=== PATIENT | male | born 1965 | race Two or more races ===

== ENCOUNTER 2018-08-13 14:44 | Inpatient (IN) | payer OTHER ==
[2018-08-13 16:35] VITALS: BMI 24.4
--- NOTE | 2018-08-13 19:00 | HP ---
CIWA Score Nausea/Vomitin-No Nausea/No Vomiting Muscle Tremors: 3 Anxiety: 3 Agitation: 3 Paroxysmal Sweats: 3 Orientation: 0-Oriented Tacttile Disturbances: 0-None Auditory Disturbances: 0-None Visual Disturbances: 0-None Headache: 2-Mild CIWA-Ar Total Score: 14 - Admission Criteria OASAS Guidelines: Admission for Medically Managed Detox: Requires at least one of the followin. CIWA greater than 12 2. Seizures within the past 24 hours 3. Delirium tremens within the past 24 hours 4. Hallucinations within the past 24 hours 5. Acute intervention needed for co occurring medical disorder 6. Acute intervention needed for co occurring psychiatric disorder 7. Severe withdrawal that cannot be handled at a lower level of care (continued vomiting, continued diarrhea, abnormal vital signs) requiring intravenous medication and/or fluids 8. Patient presents the following: CIWA greater than 12 Admission Criteria Met: Admission criteria met Admission ROS [facility] Chief Complaint: Alcohol withdrawal. Allergies/Adverse Reactions: Allergies Allergy/AdvReac Type Severity Reaction Status Date / Time No Known Allergies Allergy Verified 08/13/18 16:31 History of Present Illness: Here for alcohol detox. States "I'm drinking too much". Alcohol use since age 8. States current past few years. Longest length of sobriety from ETOH is 6 months. Cocaine use since age 17. Smokes. States current use x years. Heroin use began at age 17. Been on [facility]- MMTP x 6 years. Methadone dose is 135 mg. Had methadone today. No opiate relapse. Has a Narcan Kit at home Nicotine use since age 8. States down to 6 cig/day. Denies seizures. Blackout years ago. Overdose years ago. PMHx: HTN (stopped meds);heart attack after overdosing (years ago). States lesion on tongue is cancer and will be f/u w/ PCP after discharge. MHHx: Insomnia, Anxiety, depression. On meds - states compliant. Denies thoughts of harming self or others. Last saw a MH Provider 3 months ago. Search Terms: Eder Vann, 1965 Search Date: 08/13/2018 07:01:00 PM The Drug Utilization Report below displays all of the controlled substance prescriptions, if any, that your patient has filled in the last twelve months. The information displayed on this report is compiled from pharmacy submissions to the Department, and accurately reflects the information as submitted by the pharmacies. This report was requested by: Ayde Castellanos | Reference #: [id number] There are no results for the search terms that you entered. Search Terms: Eder Vann, 1965 Search Date: 08/13/2018 07:01:43 PM States Searched: [place], [place], [place], [place], [place], [place], [place] The Drug Utilization Report below displays the controlled substance prescriptions, if any, that were dispensed in the indicated state(s). The information displayed on this report is compiled from requests submitted to other states' PMPs, and accurately reflects the information as returned by them. Blank singer indicate data not provided by other state. This report was requested by: Ayde Castellanos | Reference #: [id number] Exam Limitations: No Limitations - Ebola screening Have you traveled outside of the country in the last 21 days: No (N) Have you had contact with anyone from an Ebola affected area: No Have you been sick,other than usual withdrawal symptoms: No (Denies recent measles exposure) Do you have a fever: No - Review of Systems Constitutional: Chills, Diaphoresis, Changes in sleep (Difficulty falling asleep ) EENT: reports: Blurred Vision, Dental Problems (No teeth. Can chew soft food.) Respiratory: reports: No Symptoms reported Cardiac: reports: No Symptoms Reported GI: reports: No Symptoms Reported : reports: No Symptoms Reported Musculoskeletal: reports: Back Pain (Intermittent back pain. Increases when standing up too long.), Other (Partial amputation (R) hand ring finger) Integumentary: reports: Other (Old track layne) Neuro: reports: Headache (Mild headache sides of head) Endocrine: reports: No Symptoms Reported Hematology: reports: No Symptoms Reported Psychiatric: reports: Judgement Intact, Orientated x3, Agitated, Anxious, Depressed (Denies thoughts of harming self or others) Patient History - Smoking Cessation Smoking history: Current every day smoker Have you smoked in the past 12 months: Yes Aproximately how many cigarettes per day: 6 Hx Chewing Tobacco Use: No Initiated information on smoking cessation: Yes 'Breaking Loose' booklet given: 08/13/18 - Substances abused Alcohol Substance route: Oral Frequency: Daily Amount used: BEERS- 5 24OZ CANS Age of first use: 8 Date of last use: 08/13/18 Cocaine Substance route: Smoking Frequency: Daily Amount used: $50 Age of first use: 17 Date of last use: 08/13/18 Admission Physical Exam [facility] - Vital Signs Vital Signs: Vital Signs - 24 hr 08/13/18 16:31 Temperature 97 F L Pulse Rate 80 Respiratory 18 Rate Blood Pressure 118/70 - Physical General Appearance: Yes: Nourished, Mild Distress, Sweating (Increased facial moisture) HEENTM: Yes: Lessions (Mass (R) lateral tongue approc 4 x 2 cm/ with whitish- yellow irregular surface/non-tender. No open ulceration noted.) Respiratory: Yes: Lungs Clear, Normal Breath Sounds, No Respiratory Distress Neck: Yes: Supple, Thyroid enlarged ((R) lateral area) Breast: Yes: Breast Exam Deferred Cardiology: Yes: Regular Rhythm, S1, S2 Abdominal: Yes: Non Tender, Flat, Soft, Increased Bowel Sounds Genitourinary: Yes: Within Normal Limits Back: Yes: Normal Inspection Musculoskeletal: Yes: full range of Motion, Gait Steady, Other (Old partial amputation (R) 4th (ring) finger) Extremities: Yes: Normal Capillary Refill, Tremors (Mild tremors) Neurological: Yes: millwright II-XII NML intact, Fully Oriented, Alert, Motor Strength 5/5 Integumentary: Yes: Normal Color, Warm, Track Layne (Old track layne arms and legs) Lymphatic: Yes: Within Normal Limits - Diagnostic (1) Alcohol dependence with uncomplicated withdrawal Current Visit: Yes Status: Acute (2) Cocaine dependence, uncomplicated Current Visit: Yes Status: Chronic (3) Methadone maintenance therapy patient Current Visit: Yes Status: Chronic (4) Thyroid enlarged Current Visit: Yes Status: Chronic (5) Tongue lesion Current Visit: Yes Status: Chronic Comment: Patient states has cancer. (6) Nicotine dependence, uncomplicated Current Visit: Yes Status: Chronic Qualifiers: Nicotine product type: cigarettes Qualified Code(s): F17.210 - Nicotine dependence, cigarettes, uncomplicated Cleared for Admission [facility] - Detox or Rehab [facility] Level of Care: Medically Managed Detox Regimen/Protocol: Librium Claeared for Rehab Admission: No Breathalyzer - Breathalyzer Breathalyzer: 0.006 Urine Drug Screen - Test Device Lot number: [id number] Expiration date: 04/25/20 - Control Is test valid?: Yes - Results Drug screen NEGATIVE: No Urine drug screen results: YVROSE-Cocaine, MTD-Methadone Inpatient Rehab Admission - Rehab Decision to Admit Inpatient rehab admission?: No
[2018-08-13] MEDS ORDERED: chlordiazePOXIDE HCL 10 MG CAPSULE PO PRN (20:01)
[2018-08-13] MEDS ORDERED: PROCHLORPERAZINE MALEATE 5 MG TABLET PO PRN (20:01)
[2018-08-13] MEDS ORDERED: IBUPROFEN 400 MG TABLET (FP) PO PRN (20:01)
[2018-08-13] MEDS ORDERED: MAGNESIUM CITRATE 300 ML BOTTLE PO PRN (20:01)
[2018-08-13] MEDS ORDERED: METHOCARBAMOL 500 MG TABLET PO PRN (20:01)
[2018-08-13] MEDS ORDERED: ACETAMINOPHEN 325 MG TABLET (FP) PO PRN ×2 (20:01)
[2018-08-13] MEDS ORDERED: MENTHOL/PHENOL 1 EACH UD MM PRN (20:01)
[2018-08-13] MEDS ORDERED: MAGNESIUM HYDROX 2400MG/30ML ORAL SUSPENSION 30 ML CUP PO PRN (20:01)
[2018-08-13] MEDS ORDERED: BISMUTH SUBSALICYLATE 524 MG/30 ML UD PO PRN (20:01)
[2018-08-13] MEDS ORDERED: NICOTINE POLACRILEX 2 MG GUM BUC PRN (20:01)
[2018-08-13] MEDS ORDERED: hydrOXYzine PAMOATE 25 MG CAPSULE (FP) PO PRN (20:01)
[2018-08-13] MEDS ORDERED: MAG HYDROX/AL HYDROX/SIMETH 30 ML UNIT-DOSE CUP PO PRN (20:01)
[2018-08-13] MEDS: THIAMINE HCL 100 MG TABLET (FP) PO SCH (21:52)
[2018-08-13] MEDS: chlordiazePOXIDE HCL 25 MG CAPSULE PO SCH (21:52)
[2018-08-13] MEDS: MELATONIN 5 MG TABLETS PO PRN (21:52)
[2018-08-14] MEDS: chlordiazePOXIDE HCL 25 MG CAPSULE PO SCH ×2 (05:19→12:25)
[2018-08-14] MEDS: PRENATAL VITAMINS W/ FOLIC ACID TABLET (FP) PO SCH (09:48)
[2018-08-14 10:26] LABS: HEMATOCRIT 36.8 % (35.4-49); HEMOGLOBIN 11.7 GM/dL (11.7-16.9); MCH 26.7 pg (25.7-33.7); MCHC 31.8 g/dl (32.0-35.9); MEAN PLT VOLUME 7.7 fl (7.5-11.1); PLATELET COUNT 250 K/MM3 (134-434); RBC 4.38 M/mm3 (4.00-5.60); RDW 13.3 % (11.9-15.9); WHITE BLOOD COUNT 5.3 K/mm3 (4.0-10.0)
--- NOTE | 2018-08-14 10:39 | HP ---
[facility] Rehab Assess/Revision - Admission History Admitted to Rehab from: Medical/Surgical - Vital signs Vital Signs: Vital Signs Period Temp Pulse Resp BP Sys/Cummings Pulse Ox Last 24 Hr 97 F-98.2 F 54-80 18-18 108-133/64-86
--- NOTE | 2018-08-14 10:41 | PN ---
S CIWA - CIWA Score Nausea/Vomitin-Mild Nausea/No Vomiting Muscle Tremors: 3 Anxiety: 2 Agitation: 3 Paroxysmal Sweats: 1-Minimal Palms Moist Orientation: 0-Oriented Tacttile Disturbances: 0-None Auditory Disturbances: 0-None Visual Disturbances: 0-None Headache: 1-Very Mild CIWA-Ar Total Score: 11 S Progress Note (SOAP) Subjective: tolerate food and fluid well resting on bed most of the morning Objective: 08/14/18 10:40 Vital Signs Temperature 98.2 F 08/14/18 09:02 Pulse Rate 54 L 08/14/18 09:02 Respiratory Rate 18 08/14/18 09:02 Blood Pressure 109/64 08/14/18 09:02 O2 Sat by Pulse Oximetry (%) Laboratory Last Values WBC 5.3 K/mm3 (4.0-10.0) 08/14/18 07:00 RBC 4.38 M/mm3 (4.00-5.60) 08/14/18 07:00 Hgb 11.7 GM/dL (11.7-16.9) 08/14/18 07:00 Hct 36.8 % (35.4-49) 08/14/18 07:00 MCV 84.0 fl (80-96) 08/14/18 07:00 MCH 26.7 pg (25.7-33.7) 08/14/18 07:00 MCHC 31.8 g/dl (32.0-35.9) L 08/14/18 07:00 RDW 13.3 % (11.9-15.9) 08/14/18 07:00 Plt Count 250 K/MM3 (134-434) 08/14/18 07:00 MPV 7.7 fl (7.5-11.1) 08/14/18 07:00 lab noted Assessment: 08/14/18 10:40 withdrawal sx Plan: continue detox
[2018-08-14 10:42] LABS: ALBUMIN 3.6 g/dl (3.4-5.0); BILIRUBIN,TOTAL 0.4 mg/dL (0.2-1); POTASSIUM 4.3 mmol/L (3.5-5.1); TOT PROT 7.4 g/dl (6.4-8.2)
[2018-08-14] MEDS ORDERED: METHADONE HCL 10 MG TABLET PO ONE (12:03)
[2018-08-14] MEDS ORDERED: METHADONE 120 MG, METHADONE 10 MG, METHADONE 5 MG PO ONE (12:15)
[2018-08-14] MEDS ORDERED: METHADONE HCL 10 MG TABLET ONE (12:15)
[2018-08-14] MEDS ORDERED: METHADONE HCL 40 MG DISPERSABLE TABLET ONE (12:16)
[2018-08-14] MEDS ORDERED: METHADONE HCL 5 MG TABLET ONE (12:17)
--- NOTE | 2018-08-14 17:15 | CONSULT ---
[facility] Psychiatric Consult - Data Date of interview: 08/14/18 Admission source: [facility] Identifying data: First admission to [facility] for this 53 y/o Aa male self- referred for detoxification (cocaine, heroin, alcohol). Examined at [address] [place] [address]. Patient is , no children, homeless, unemployed and supported of SSI benefits. Substance Abuse History: Confirmed by the patient in this session. Details in current [facility] report as follows : Smoking history: Current every day smoker. Have you smoked in the past 12 months: Yes. Aproximately how many cigarettes per day: 6. Hx Chewing Tobacco Use: No. Initiated information on smoking cessation: Yes. 'Breaking Loose' booklet given: 08/13/18. - Substances abused. Alcohol. Substance route: Oral. Frequency: Daily. Amount used: BEERS- 5 24OZ CANS. Age of first use: 8. Date of last use: 08/13/18. Cocaine. Substance route: Smoking. Frequency: Daily. Amount used: $50. Age of first use: 17. Date of last use: 08/13/18 Medical History: Hepatitis C, antecedent of heart attack (tears ago), lesion of the tongue and hypertension. Psychiatric History: No reported history of psychiatric hospitalizations. Patient informs that he sees a psychiatrist, every three months, in [facility]. Diagnosed with MDD and prescribed remeron 15 mg/hs + abilify 10 mg/day. Mr Vann is also on methadone maintenance (135 mg/day) at the [facility] ([facility]) in [facility]. Denies history of suicide attempts. Physical/Sexual Abuse/Trauma History: Patient denies. Additional Comment: Urine drug screen results: YVROSE-Cocaine, MTD-Methadone. Noted. Mental Status Exam - Mental Status Exam Alert and Oriented to: Time, Place, Person Cognitive Function: Good Patient Appearance: Well Groomed (edentulous) Mood: Hopeful Affect: Appropriate, Normal Range Patient Behavior: Fatigued, Appropriate, Cooperative Speech Pattern: Clear Voice Loudness: Normal Thought Process: Intact, Goal Oriented Thought Disorder: Not Present Hallucinations: Denies Suicidal Ideation: Denies Homicidal Ideation: Denies Insight/Judgement: Fair Sleep: Poorly, Difficulty falling asleep Appetite: Good Muscle strength/Tone: Normal Gait/Station: Normal Psychiatric Findings - Problem List ([place] 1, 2,3) (1) Alcohol dependence with uncomplicated withdrawal Current Visit: Yes Status: Acute (2) Opioid dependence on agonist therapy Current Visit: Yes Status: Acute (3) Cocaine dependence, uncomplicated Current Visit: Yes Status: Chronic (4) Nicotine dependence, uncomplicated Current Visit: Yes Status: Chronic Qualifiers: Nicotine product type: cigarettes Qualified Code(s): F17.210 - Nicotine dependence, cigarettes, uncomplicated (5) Substance induced mood disorder Current Visit: Yes Status: Chronic (6) History of mood disorder Current Visit: Yes Status: Chronic (7) Insomnia Current Visit: Yes Status: Chronic - Initial Treatment Plan Initial Treatment Plan: Psychoeducation. Sleep hygiene. Detoxification. Medications : abilify 10 mg po daily + remeron 15 mg po hs. Side effects/ benefits of both medications are discussed with patient. Consent (verbal) given to MD. Mireles.
[2018-08-14] MEDS: chlordiazePOXIDE 5 MG CAPSULE PO SCH (22:09)
[2018-08-14] MEDS: MELATONIN 5 MG TABLETS PO PRN (22:09)
[2018-08-14] MEDS: MIRTAZAPINE 15 MG TABLET (FP) PO SCH (22:09)
[2018-08-14] MEDS: THIAMINE HCL 100 MG TABLET (FP) PO SCH (22:09)
[2018-08-15] MEDS ORDERED: METHADONE HCL 10 MG TABLET ONE (04:45)
[2018-08-15] MEDS ORDERED: METHADONE HCL 5 MG TABLET ONE (04:46)
[2018-08-15] MEDS ORDERED: METHADONE HCL 40 MG DISPERSABLE TABLET ONE (04:46)
[2018-08-15] MEDS: chlordiazePOXIDE 5 MG CAPSULE PO SCH ×2 (05:11→13:41)
[2018-08-15] MEDS: METHADONE 120 MG, METHADONE 10 MG, METHADONE 5 MG PO SCH (05:11)
[2018-08-15] MEDS ORDERED: METHADONE HCL 10 MG TABLET PO SCH (06:00)
[2018-08-15] MEDS: ARIPiprazole 10 MG TABLET PO SCH (10:04)
[2018-08-15] MEDS: PRENATAL VITAMINS W/ FOLIC ACID TABLET (FP) PO SCH (10:04)
--- NOTE | 2018-08-15 12:02 | PN ---
[facility] CIWA - CIWA Score Nausea/Vomitin-Mild Nausea/No Vomiting Muscle Tremors: 2 Anxiety: 2 Agitation: 2 Paroxysmal Sweats: 1-Minimal Palms Moist Orientation: 0-Oriented Tacttile Disturbances: 0-None Auditory Disturbances: 0-None Visual Disturbances: 0-None Headache: 0-None Present CIWA-Ar Total Score: 8 S Progress Note (SOAP) Subjective: feeling better today patient is on methadone program 135 mg po daily estimated discharge date 08/16/18 patient will return to his methadone program on Sunday Objective: 08/15/18 12:01 Vital Signs Temperature 98.2 F 08/15/18 09:25 Pulse Rate 55 L 08/15/18 09:25 Respiratory Rate 18 08/15/18 09:25 Blood Pressure 109/69 08/15/18 09:25 O2 Sat by Pulse Oximetry (%) Laboratory Last Values WBC 5.3 K/mm3 (4.0-10.0) 08/14/18 07:00 RBC 4.38 M/mm3 (4.00-5.60) 08/14/18 07:00 Hgb 11.7 GM/dL (11.7-16.9) 08/14/18 07:00 Hct 36.8 % (35.4-49) 08/14/18 07:00 MCV 84.0 fl (80-96) 08/14/18 07:00 MCH 26.7 pg (25.7-33.7) 08/14/18 07:00 MCHC 31.8 g/dl (32.0-35.9) L 08/14/18 07:00 RDW 13.3 % (11.9-15.9) 08/14/18 07:00 Plt Count 250 K/MM3 (134-434) 08/14/18 07:00 MPV 7.7 fl (7.5-11.1) 08/14/18 07:00 Sodium 138 mmol/L (136-145) 08/14/18 07:00 Potassium 4.3 mmol/L (3.5-5.1) 08/14/18 07:00 Chloride 107 mmol/L (98-107) 08/14/18 07:00 Carbon Dioxide 26 mmol/L (21-32) 08/14/18 07:00 Anion Gap 5 MMOL/L (8-16) L 08/14/18 07:00 BUN 17 mg/dL (7-18) 08/14/18 07:00 Creatinine 1.0 mg/dL (0.55-1.3) 08/14/18 07:00 Est GFR (CKD-EPI)AfAm 99.85 08/14/18 07:00 Est GFR (CKD-EPI)NonAf 86.15 08/14/18 07:00 Random Glucose 92 mg/dL (74-106) 08/14/18 07:00 Calcium 9.0 mg/dL (8.5-10.1) 08/14/18 07:00 Total Bilirubin 0.4 mg/dL (0.2-1) 08/14/18 07:00 AST 26 U/L (15-37) 08/14/18 07:00 ALT 22 U/L (13-61) 08/14/18 07:00 Alkaline Phosphatase 83 U/L (45-117) 08/14/18 07:00 Total Protein 7.4 g/dl (6.4-8.2) 08/14/18 07:00 Albumin 3.6 g/dl (3.4-5.0) 08/14/18 07:00 RPR Titer Nonreactive (NONREACTIVE) 08/14/18 07:00 lab noted Assessment: 08/15/18 12:02 alcohol withdrawal sx Plan: continue detox
[2018-08-15] MEDS ORDERED: chlordiazePOXIDE HCL 10 MG CAPSULE PO PRN (21:00)
[2018-08-15] MEDS: MELATONIN 5 MG TABLETS PO PRN (22:04)
[2018-08-15] MEDS: chlordiazePOXIDE HCL 10 MG CAPSULE PO SCH (22:04)
[2018-08-15] MEDS: MIRTAZAPINE 15 MG TABLET (FP) PO SCH (22:04)
[2018-08-15] MEDS: THIAMINE HCL 100 MG TABLET (FP) PO SCH (22:04)
[2018-08-16] MEDS ORDERED: METHADONE HCL 40 MG DISPERSABLE TABLET ONE (04:09)
[2018-08-16] MEDS ORDERED: METHADONE HCL 10 MG TABLET ONE (04:09)
[2018-08-16] MEDS ORDERED: METHADONE HCL 5 MG TABLET ONE (04:10)
[2018-08-16] MEDS: chlordiazePOXIDE HCL 10 MG CAPSULE PO SCH (05:31)
[2018-08-16] MEDS: METHADONE 120 MG, METHADONE 10 MG, METHADONE 5 MG PO SCH (05:31)
[2018-08-16 06:19] VITALS: TEMP 97.5
[2018-08-16 09:05] VITALS: BP 108/74; PULSE 58
[2018-08-16] MEDS: PRENATAL VITAMINS W/ FOLIC ACID TABLET (FP) PO SCH (10:16)
[2018-08-16] MEDS: ARIPiprazole 10 MG TABLET PO SCH (10:16)
--- NOTE | 2018-08-16 11:38 | DS ---
[facility] Detox Discharge Summary Admission Date: 08/13/18 Discharge Date: 08/16/18 - History Present History: Alcohol Dependence, Cocaine Dependence, Opioid Dependence, MMTP Additional Comments: PATIENT GOING TO [facility] ([place] [facility] FOR AFTERCARE. PATIENT WAS DISCHARGED FROM DETOX UNIT TO BE TAKEN OVER TO REHAB UNIT IN STABLE MEDICAL CONDITION. Pertinent Past History: M.M.T.P., Nicotine Dependence, Insomnia, HTN, GA, History of Lesion On Tongue, History of GA, History Of Enlarged Thyroid, Anxiety, Depression, History Of Mood Disorder. - Physical Exam Results Vital Signs: Vital Signs Temperature 97.5 F L 08/16/18 09:03 Pulse Rate 58 L 08/16/18 09:03 Respiratory Rate 18 08/16/18 09:03 Blood Pressure 108/74 08/16/18 09:03 O2 Sat by Pulse Oximetry (%) Pertinent Admission Physical Exam Findings: WITHDRAWAL SYMPTOMS. Laboratory Tests 08/14/18 08/14/18 08/14/18 07:00 07:00 07:00 WBC 5.3 RBC 4.38 Hgb 11.7 Hct 36.8 MCV 84.0 MCH 26.7 MCHC 31.8 L RDW 13.3 Plt Count 250 MPV 7.7 Sodium 138 Potassium 4.3 Chloride 107 Carbon Dioxide 26 Anion Gap 5 L BUN 17 Creatinine 1.0 Est GFR (CKD-EPI)AfAm 99.85 Est GFR (CKD-EPI)NonAf 86.15 Random Glucose 92 Calcium 9.0 Total Bilirubin 0.4 AST 26 ALT 22 Alkaline Phosphatase 83 Total Protein 7.4 Albumin 3.6 RPR Titer Nonreactive LABS NOTED. - Treatment Hospital Course: Detox Protocol Followed, Detoxed Safely, Responded well, Discharged Condition Good, Rehab Referral Accepted Patient has Accepted a Rehab Referral to: [facility] ([place], [place]). - Medication Discharge Medications: Ambulatory Orders Aripiprazole [Abilify -] 10 mg PO DAILY 08/13/18 Mirtazapine [Remeron -] 15 mg PO HS 08/13/18 - Diagnosis (1) Alcohol dependence with uncomplicated withdrawal Current Visit: Yes Status: Acute (2) Opioid dependence on agonist therapy Current Visit: Yes Status: Acute (3) Cocaine dependence, uncomplicated Current Visit: Yes Status: Chronic (4) History of mood disorder Current Visit: Yes Status: Chronic (5) Insomnia Current Visit: Yes Status: Chronic Qualifiers: Insomnia type: unspecified Qualified Code(s): G47.00 - Insomnia, unspecified (6) Methadone maintenance therapy patient Current Visit: Yes Status: Chronic (7) Nicotine dependence, uncomplicated Current Visit: Yes Status: Chronic Qualifiers: Nicotine product type: cigarettes Qualified Code(s): F17.210 - Nicotine dependence, cigarettes, uncomplicated (8) Substance induced mood disorder Current Visit: Yes Status: Chronic (9) Thyroid enlarged Current Visit: Yes Status: Chronic (10) Tongue lesion Current Visit: Yes Status: Chronic - AMA Did Patient Leave Against Medical Advice: No
== END 2018-08-16 11:52 | disposition other institution (70) | DRG 773 ==
LOC: YASAS 14:44 → Y3N 20:34
PROVIDERS: ADMIT Surgery; ATTEND Surgery
PROC: HZ2ZZZZ Detoxification Services for Substance Abuse Treatment (ICD-10-PCS; principal; 2018-08-13)
DX: F10.230 Alcohol dependence with withdrawal, uncomplicated (principal); F11.20 Opioid dependence, uncomplicated; F14.20 Cocaine dependence, uncomplicated; F17.210 Nicotine dependence, cigarettes, uncomplicated; F39 Unspecified mood [affective] disorder; F19.24 Other psychoactive substance dependence with psychoactive substance-induced mood disorder; F41.8 Other specified anxiety disorders; F32.9 Major depressive disorder, single episode, unspecified; G47.00 Insomnia, unspecified; I25.10 Atherosclerotic heart disease of native coronary artery without angina pectoris; I10 Essential (primary) hypertension; I25.2 Old myocardial infarction; K14.8 Other diseases of tongue; E04.9 Nontoxic goiter, unspecified; C02.9 Malignant neoplasm of tongue, unspecified
CPT/HCPCS: 36415; 80053; 85027; 86593

== ENCOUNTER 2018-08-16 11:53 | Inpatient (IN) | payer OTHER | END 2018-08-30 10:42 | disposition home or self-care (01) | LOC: YASAS 11:53 → Y3W 11:54 ==